=== PATIENT | female | born 2005 | race Caucasian/White ===

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

== ENCOUNTER 2023-09-07 16:49 | Emergency (ER) | payer OTHER, SELFPAY ==
[2023-09-07 17:00] VITALS: BP 117/70; PULSE 122; RESP 18; TEMP 36.7; O2SAT 98; BMI 31.0
--- NOTE | 2023-09-07 17:01 | ED.URI ---
HPI - URI/Sore Throat General Chief Complaint: Upper Respiratory Symptoms Stated Complaint: sore throat/chills Time Seen by Provider: 09/07/23 18:02 Source: patient Mode of arrival: ambulatory Limitations: no limitations History of Present Illness ED Provider: Luz meng HPI Narrative: 18yo female with no medical history here with sore throat, body aches, headache, chills, body aches, subjective fever since Friday. No chest pain, shortness of breath, vomiting, diarrhea, neck pain/stiffness, skin rash. Related Data Previous Rx's ?Medication ?Instructions ?Recorded amoxicillin 500 mg capsule 500 mg PO BID #20 caps 09/07/23 Allergies Allergy/AdvReac Type Severity Reaction Status Date / Time No Known Allergies Allergy Verified 09/07/23 17:02 Review of Systems Review of Systems: Yes all other systems are reviewed and are negative Constitutional: Constitutional: Reports no additional constitutional complaints, Reports body ache(s), Reports chills, Reports fever(s), Reports headache(s) and Denies weakness Eyes: Eyes: Reports no additional eye complaints and Denies change in vision ENT: Reports system reviewed and no additional complaints, except as documented, Denies dizziness, Reports headache(s), Denies nasal congestion, Denies nasal discharge, Denies neck pain and Reports sore throat Cardiovascular: Cardiovascular: Reports no additional cardiovascular complaints, Denies chest pain, Denies leg edema and Denies dyspnea Respiratory: Respiratory: Reports no additional respiratory complaints, Denies cough and Denies dyspnea Gastrointestinal: Gastrointestinal: Reports no additional gastrointestinal complaints, Denies abdominal pain, Denies diarrhea, Denies nausea and Denies vomiting Genitourinary: Genitourinary: Reports no additional female genitourinary complaints and Denies urinary incontinence Musculoskeletal: Musculoskeletal: Reports no additional musculoskeletal complaints, Denies back pain, Denies arthralgias, Denies joint swelling, Denies neck pain, Denies numbness and Denies tingling Integumentary/Breasts: Skin/Breast: Reports system reviewed and no additional complaints, except as docu and Denies rash Neurologic: Reports system reviewed and no additional complaints, except as documented, Denies Abnormal speech present, Denies dizziness, Reports headache(s), Denies numbness, Denies tingling and Denies weakness [facility] Past Medical History Attestation statement: The following information was validated with the patient. Source: old records reviewed and nursing notes reviewed Medical History No known health problems Social History Social History Alcohol intake: never Do you have a plan to hurt others: No Plan Physical Exam Vital Signs: Vital Signs: Last Vital Signs Temp 98.1 F 09/07/23 17:00 Pulse 122 H 09/07/23 17:00 Resp 18 09/07/23 17:00 BP 117/70 09/07/23 17:00 Pulse Ox 98 09/07/23 17:00 O2 Del Method Room Air 09/07/23 17:00 BMI result Body Mass Index 31.0 Const: General: cooperative, healthy appearing, comfortable and no acute distress Orientation/consciousness: patient oriented x3 Limitations: no limitations HEENT: Head: Yes normal to inspection Ears: hearing grossly normal bilaterally and TM's normal bilaterally General nose exam: Normal external nose present Face and sinus: Yes normal facial exam Mouth: Normal oral and palatal mucosa present Throat: Yes posterior oropharynx normal, Yes uvula midline, Yes abnormal tonsil (bilateral tonsillar erythema/swelling/exudate) and No peritonsillar mass Eyes: General: appearance normal, both eyes and all related structures Pupils: Equal, round and reactive pupils present Neck: Neck: Yes normal visual inspection, Yes full ROM, Yes no lymphadenopathy and Yes no meningeal signs Chest: Chest palpation & inspection: normal inspection of the chest Resp: Effort & Inspection: normal respiratory effort Auscultation: clear to auscultation bilaterally Cardio: Rate: regular rate Rhythm: regular rhythm Peripheral pulses: Peripheral pulses 2+ throughout GI: Inspection: Yes normal to inspection Palpation (GI): Soft to palpation and nontender Auscultation: normal bowel sounds Back/Spine/Pelvis: Thoracic/Lumbar Spine: thoracic and lumbar spine normal to inspection Skin: General skin exam: no rashes or lesions noted Neuro: General: patient oriented x3, no meningeal signs, no focal motor deficits and normal sensation to monofilament Cranial nerves: Yes Equal, round and reactive pupils present Cognition (Neuro): normal cognition Speech: No Abnormal speech present Gait exam (Neuro): Normal gait present Motor exam (neuro): 5/5 motor strength present throughout Extrem: General: Yes normal to inspection Course Course Course Narrative: This is a rapid medical exam. Deferred additional HPI, ROS, PE to primary provider. 18yo female here with sore throat, body aches, headache, chills, body aches, subjective fever. Will obtain strep testing, viral testing. ONI Meng APRN Medical Decision Making Medical Decision Making MDM Narrative: 18yo female with no medical history here with sore throat, body aches, headache, chills, body aches, subjective fever since Friday. No chest pain, shortness of breath, vomiting, diarrhea, neck pain/stiffness, skin rash. Bilateral tonsilar erythema/swelling/exudate. Uvula midline. Tolerating secretions. No lymphadenopathy. Neck is supple. Mild tachycardia. Patient well hydrated appearing. Can orally rehydrate WIll obtain viral testing, strep testing Differential Diagnosis Differential Diagnoses: The differential diagnosis associated with the presentation includes strep pharyngitis, influenza, viral syndrome Low suspicion for [employer], RPA, epiglottis, ludwigs Admission/Observation Consideration of admission/observation: Escalation of care including admission/observation considered Low suspicion for [employer], RPA, epiglottis, ludwigs requiring advanced imaging Lab Data MDM Lab Attestation statement: I reviewed the patient's lab results. Labs: Lab Results 09/07/23 Range/Units 17:07 Influenza Type A (PCR) NEGATIVE (Negative) Influenza Type B (PCR) NEGATIVE (Negative) RSV RNA Qual (PCR) NEGATIVE (Negative) SARS-CoV-2 RNA (RT-PCR) NEGATIVE (Negative) S. pyogenes GrpA VERO Positive A (Negative) Tests considered The following testing was considered but not selected: Low suspicion for [employer], RPA, epiglottis, ludwigs requiring advanced imaging Prescription Management I considered prescription management with: Antibiotic Discharge Plan Discharge Clinical Impression: Pharyngitis Patient Disposition: Home, Self-Care Instructions: Pharyngitis (ED) Additional Instructions: Alternate motrin/tylenol for pain or fever Increase fluids, rest Return for worsening symptoms Testing for covid, flu and rsv are negative Prescriptions: New amoxicillin 500 mg capsule 500 mg PO BID Qty: 20 0RF Referrals: Physician,Unknown J [Primary Care Provider] - 1 week Stand Alone Forms: Work/School Release Print Language: Monegasque
[2023-09-07 17:47] LABS: IDNOW Serial# 58CA691E; Strep A Nucleic Acid Positive (Negative)
[2023-09-07 17:59] LABS: Influenza A PCR NEGATIVE (Negative); Influenza B PCR NEGATIVE (Negative); Resp Syncy Virus RNA Qual PCR NEGATIVE (Negative); SARS COV2 PCR INHOUSE NEGATIVE (Negative)
[2023-09-07] MEDS: Amoxicillin 500 MG CAPSULE PO (18:07)
[2023-09-07 18:12] VITALS: BP 117/70; PULSE 122; RESP 18; TEMP 36.7; O2SAT 98
== END 2023-09-07 18:14 | disposition home or self-care (01) ==
LOC: HO.ED 18:13
PROVIDERS: Nurse Practitioner Family; Emergency Provider Emergency Medicine
DX: J02.9 Acute pharyngitis, unspecified (principal); M79.10 Myalgia, unspecified site; R51.9 Headache, unspecified; Z03.818 Encounter for observation for suspected exposure to other biological agents ruled out
CPT/HCPCS: 0241U; 87651; 99282; 99283

== ENCOUNTER 2023-12-11 20:31 | Emergency (ER) | payer OTHER, SELFPAY ==
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
[2023-12-11 21:03] VITALS: BP 136/72; PULSE 84; RESP 16; TEMP 36.4; O2SAT 99; BMI 33.0
[2023-12-11] MEDS: predniSONE 20 MG TABLET 40 MG PO (23:06)
[2023-12-11] MEDS: Amoxicillin/Potassium Clav 875 MG TABLET PO (23:06)
[2023-12-11] MEDS: Albuterol Sulfate 90 MCG 8 GM INHALER 2 PUFF INHALE (23:06)
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
[2023-12-12 00:04] LABS: Influenza A PCR NEGATIVE (Negative); Influenza B PCR NEGATIVE (Negative); Resp Syncy Virus RNA Qual PCR NEGATIVE (Negative); SARS COV2 PCR INHOUSE NEGATIVE (Negative)
[2023-12-12 00:18] VITALS: BP 136/72; PULSE 84; RESP 16; TEMP 36.4; O2SAT 99
== END 2023-12-12 00:19 | disposition home or self-care (01) ==
PROVIDERS: Emergency Provider Emergency Medicine
DX: S13.4XXA Sprain of ligaments of cervical spine, initial encounter (principal); M54.2 Cervicalgia; H66.002 Acute suppurative otitis media without spontaneous rupture of ear drum, left ear; R07.89 Other chest pain; V49.40XA Driver injured in collision with unspecified motor vehicles in traffic accident, initial encounter; Y93.9 Activity, unspecified; Y92.488 Other paved roadways as the place of occurrence of the external cause; Y99.8 Other external cause status; Z03.818 Encounter for observation for suspected exposure to other biological agents ruled out
CPT/HCPCS: 0241U; 71046; 72040; 99282; 99284

== ENCOUNTER 2023-12-28 20:37 | Emergency (ER) | payer OTHER, SELFPAY ==
[2023-12-28 20:44] VITALS: BP 124/77; PULSE 108; RESP 16; TEMP 36.9; O2SAT 100; BMI 32.8
--- NOTE | 2023-12-28 23:51 | ED.SKABFB ---
HPI - Skin/Abscess/Foreign Bdy General Chief complaint: Skin/Abscess/Foreign Body Stated complaint: ?Cyst Time Seen by Provider: 12/28/23 23:43 Source: patient Mode of arrival: ambulatory Limitations: no limitations History of Present Illness ED Provider: Dr. Christianne Dawson HPI narrative: patient comes to the emergency room complaining of a small pimple /abscess on the right side of the breast. Patient states it has been present for about 1 day. Patient states it hurts when she puts a brown or if she moves certain ways. Denies fever chills, no pus drainage. Denies picking on the skin or trying to pop it herself. Related Data Previous Rx's ?Medication ?Instructions ?Recorded amoxicillin 500 mg capsule 500 mg PO BID #20 caps 09/07/23 albuterol sulfate 90 mcg/actuation 2 inh inhalation Q6H PRN shortness 12/12/23 breath activated powder inhaler of breath or wheezing #1 ea amoxicillin 875 mg-potassium 1 tab PO BID #13 tabs 12/12/23 clavulanate 125 mg tablet prednisone 20 mg tablet 40 mg (2 x 20 mg) PO DAILY 4 days 12/12/23 #8 tabs cephalexin 500 mg capsule 500 mg PO BID #14 caps 12/28/23 doxycycline hyclate 100 mg tablet 100 mg PO BID #14 tabs 12/28/23 ibuprofen 600 mg tablet 600 mg PO Q8H PRN fever or pain 12/28/23 #20 tabs Allergies Allergy/AdvReac Type Severity Reaction Status Date / Time No Known Allergies Allergy Verified 12/28/23 20:48 Review of Systems Review of Systems: Constitutional : No Weight loss, No Fever, No Chills, No Night Sweats, No Fatigue, No Malaise ENT/Mouth : No Hearing loss, No Ear Pain, No Nasal Congestion, No Sinus Pain, No Hoarseness, No sore throat, No Rhinorrhea, No Swallowing Difficulty Eyes: No Eye Pain, No Swelling, No Redness, No Foreign Body, No Discharge, No Vision Changes Cardiovascular : No Chest Pain, No SOB, No Dyspnea on Exertion, No Orthopnea, No Edema, No Palpitations Respiratory : No Cough, No Sputum, No Wheezing, No Smoke Exposure, No Dyspnea Gastrointestinal : No Nausea, No Vomiting, No Diarrhea, No Constipation, No abdominal Pain, No Hematochezia, No Melena Genitourinary : no irregular bleeding, No Dysuria, No Urinary Frequency, No Hematuria, No Urinary Incontinence, No Urgency, No Flank Pain, No Urinary Flow Changes, No Hesitancy Musculoskeletal : No joint pain, No Myalgias, No Joint Swelling Skin : Complaining of a Skin pimple/abscess on the right side of the breast Neuro : No Weakness, No Numbness, No Paresthesias, No Loss of Consciousness, No Dizziness, No Headache Psych : No Anxiety/Panic, No Depression, No SI/HI/AH/VH, No Social Issues, Heme/Lymph: No Bruising, No Bleeding,No Lymphadenopathy Endocrine : No Polyuria, No Polydipsia, No Temperature Intolerance [facility] Past Medical History Medical History No known health problems Social History Social History (Updated 12/11/23 @ 23:09 by Mala Case DO) Alcohol intake: never Patient Tobacco Use Status: Never used Tobacco Smoked in Last 30 Days: No Use of substances other than those prescribed or required for medical reasons: No Advance Directives: No Advance Directives Information Provided: No Patient : No Physical Exam Vital Signs: Vital Signs: Last Vital Signs Temp 98.5 F 12/28/23 20:44 Pulse 108 H 12/28/23 20:44 Resp 16 12/28/23 20:44 BP 124/77 12/28/23 20:44 Pulse Ox 100 12/28/23 20:44 O2 Del Method Room Air 12/28/23 20:44 BMI result Body Mass Index 32.8 Const: Other: Appearance: Alert. Oriented X3. No acute distress. Eyes: Pupils equal, round and reactive to light. ENT: Pharynx normal. Neck: Normal inspection. Neck supple. No lymph nodes noted. No crepitus CVS: Normal heart rate and rhythm. Pulses normal. Normal S1 and S2 Respiratory: No respiratory distress. Breath sounds normal. No Wheezing. No rales Abdomen: Soft and nontender. No rigidity. No distention. Skin: on the middle aspect of the right breast, there is a 5 mm x 5 mm area of induration with erythema around it. There is no pus drainage, no fluctuation in the skin, abscess not suspected. Extremities: No lower extremity edema. No Lacerations. No Rash Neuro: Oriented X 3. No motor deficit. No sensory deficit. Moving all extremities. No slurred speech. CN 2 through 12 grossly intact Psych: calm, cooperative, normal affect Medical Decision Making Medical Decision Making MDM Narrative: I discussed the physical exam with the patient, patient likely has cellulitis, possibly forming an abscess. Patient was instructed to use warm compresses and was given 2 doses of antibiotic, Keflex and doxycycline. I discussed with the patient that if the infection worsens or she develops any new symptoms, she needs to return to the emergency room. Patient agrees with plan. Discharge Plan Discharge Clinical Impression: Cellulitis Patient Disposition: Home, Self-Care Instructions: Cellulitis (ED) Additional Instructions: Please follow-up with your primary care physician tomorrow. If you have any worsening or new symptoms, please return to the emergency room or call 911 Prescriptions: New cephalexin 500 mg capsule 500 mg PO BID Qty: 14 0RF doxycycline hyclate 100 mg tablet 100 mg PO BID Qty: 14 0RF ibuprofen 600 mg tablet 600 mg PO Q8H PRN (Reason: fever or pain) Qty: 20 0RF No Action amoxicillin 500 mg capsule 500 mg PO BID Qty: 20 0RF prednisone 20 mg tablet 40 mg PO DAILY 4 Days Qty: 8 0RF amoxicillin-pot clavulanate 875-125 mg tablet 1 tab PO BID Qty: 13 0RF albuterol sulfate 90 mcg/actuation aerosol powdr breath activated 2 inh inhalation Q6H PRN (Reason: shortness of breath or wheezing) Qty: 1 0RF Print Language: Tunisian
[2023-12-29] MEDS: Doxycycline Monohydrate 100 MG CAPSULE PO (00:05)
[2023-12-29] MEDS: Ibuprofen 600 MG TABLET PO (00:05)
[2023-12-29] MEDS: cephALEXin 500 MG CAPSULE PO (00:05)
[2023-12-29 00:08] VITALS: BP 121/71; PULSE 92; RESP 18; TEMP 36.8; O2SAT 98
== END 2023-12-29 00:09 | disposition home or self-care (01) ==
PROVIDERS: Emergency Provider Emergency Medicine
DX: N61.0 Mastitis without abscess (principal)
CPT/HCPCS: 99283; 99284